=== PATIENT | female | born 1995 | race Two or more races ===

== ENCOUNTER 2022-10-23 17:01 | Emergency (ER) | payer OTHER ==
[~2022-10-23] VITALS: Ht 167.6 cm; Wt 64.4 kg
--- NOTE | 2022-10-23 17:58 | NUR ---
Edyta morales in [facility] - 10/23/22 at 1808 by KARTHIK CALLED TO TRIAGE, NO RESPONSE
--- NOTE | 2022-10-23 18:30 | NUR ---
from home c/o headache and palpitation since 1100. PLACED IN BED, AAOX4, BREATHING EVEN AND UNLABORED SATURATING AT 98%RA, ATTACHED TO MONITOR SHOWS NORMAL SINUS RHYTHYM UT- 70.
--- NOTE | 2022-10-23 18:35 | NUR ---
AT BEDSIDE FOR EVAL
[2022-10-23] MEDS ORDERED: ACETAMINOPHEN ES 500 MG TABLET PO ONE (19:00)
[2022-10-23] MEDS ORDERED: ACETAMINOPHEN ES 500 MG TABLET ONE (19:18)
--- NOTE | 2022-10-23 19:25 | NUR ---
Patient discharged to home in stable condition. Written and verbal after care instructions given. Patient verbalizes understanding of instruction.
[2022-10-23 19:31] VITALS: BP 120/85
== END 2022-10-23 19:25 | disposition home or self-care (01) ==
LOC: ER 17:03
DX: R00.2 Palpitations (principal); R51.9 Headache, unspecified